=== PATIENT | male | born 1965 | race Caucasian/White ===

== ENCOUNTER → 2018-01-15 15:32 | Outpatient (CLI) | payer MEDICARE, SELFPAY ==
--- NOTE | 2018-01-15 15:47 | RAD_ITS ---
STUDY: X-RAY - LUMBAR SPINE REASON FOR EXAM: Male, 52 years old. Back pain TECHNIQUE: 3 view(s) of the lumbar spine were obtained. COMPARISON: None FINDINGS: There is a screw transfixing the LEFT sacroiliac joint. There are NO lumbar vertebral body fractures or malalignments. There are multilevel degenerative disc changes and facet arthropathy. There is very mild scoliosis with convexity to the RIGHT. The graft there is hardware transfixing old fracture of the LEFT side of the pelvis. Soft tissues are unremarkable. RAD/Lumbar Spine 2 or 3 Views IMPRESSION: There are chronic changes as described. There is NO acute bony abnormality. Electronically Signed: Sanjiv Nathan MD at 3:31 EDT , Service support ,
--- NOTE | 2018-01-15 15:50 | RAD_ITS ---
STUDY: X-RAY - PELVIS REASON FOR EXAM: Male, 52 years old. Back pain TECHNIQUE: One view of the pelvis was obtained. COMPARISON: None. FINDINGS: There is a screw transfixing the LEFT sacroiliac joint. There is hardware transfixing old healed fracture of the LEFT side of the pelvis. 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 The RIGHT hip joint is unremarkable. There is NO acute bony abnormality. Soft tissues are unremarkable. RAD/Pelvis 1 or 2 Views IMPRESSION: There are old healed injuries as described. There is NO acute abnormality. Electronically Signed: Sanjiv Nathan MD at 3:46 EDT , Service support ,
[2018-01-15 19:26] LABS: Amphetamine Urine VISTA NEGATIVE (<1000 ng/mL); Barbiturate Urine VISTA NEGATIVE (< 200 ng/mL); Benzodiazepine Urine VISTA NEGATIVE (< 200 ng/mL); Cocaine Urine VISTA NEGATIVE (< 300 ng/mL); Ecstacy Urine VISTA NEGATIVE (< 500 ng/mL); Methadone Urine VISTA NEGATIVE (< 300 ng/mL); PCP Urine VISTA NEGATIVE (< 25 ng/mL); THC Urine VISTA NEGATIVE (< 50 ng/mL); Vista UDS pH Range 5
== END ==
PROVIDERS: Visit Provider Anesthesiology Pain Medicine
DX: M54.9 Dorsalgia, unspecified (principal); M54.2 Cervicalgia; F11.20 Opioid dependence, uncomplicated
CPT/HCPCS: 72100; 72170; 80307

== ENCOUNTER → 2018-05-17 15:35 | Outpatient (CLI) | payer MEDICARE, SELFPAY ==
[2016-05-31 19:14] VITALS: BMI 33.7
[2018-05-17 16:46] LABS: Amphetamine Urine VISTA NEGATIVE (<1000 ng/mL); Barbiturate Urine VISTA NEGATIVE (< 200 ng/mL); Benzodiazepine Urine VISTA NEGATIVE (< 200 ng/mL); Cocaine Urine VISTA NEGATIVE (< 300 ng/mL); Ecstacy Urine VISTA NEGATIVE (< 500 ng/mL); Methadone Urine VISTA NEGATIVE (< 300 ng/mL); PCP Urine VISTA NEGATIVE (< 25 ng/mL); THC Urine VISTA NEGATIVE (< 50 ng/mL); Vista UDS pH Range 6
== END ==
PROVIDERS: Referring Provider Anesthesiology Pain Medicine; Visit Provider Anesthesiology Pain Medicine
DX: F11.20 Opioid dependence, uncomplicated (principal)
CPT/HCPCS: 80307